=== PATIENT | male | born 1990 | race Caucasian/White ===

== ENCOUNTER 2016-10-15 21:15 | Emergency (ER) | payer BC ==
[2016-10-15] MEDS ORDERED: Tetan/Diph/Pertus SYR(Tdap)* 0.5 ML SYR(BOOSTRIX) use SYR IM ONE (23:24)
[2016-10-16 00:22] VITALS: BP 105/56
--- NOTE | 2016-10-16 01:22 | ED ---
Lisette Mejia SooYoung, scribed for Loy Sweet MD on 10/15/16 at 2325 . 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 Pt was working on his truck and dropped a wrench onto his L forehead. Associated sx: dizziness. No active bleeding. Denies LOC. Denies pain elsewhere. Denies vomiting. Pt has never had stitches before. He's unsure of his last tetanus shot. 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 Mechanism of Injury: Sharp/Blunt Trauma Onset/Duration: Sudden Onset, Lasting Hours, Still Present Timing: Constant Onset Severity: Moderate Current Severity: Moderate Pain Intensity: 6 Pain Scale Used: 0-10 Numeric Associated Signs & Symptoms: Numbness - L forehead near eye - Allergy/Home Medications Allergies/Adverse Reactions: Allergies Allergy/AdvReac Type Severity Reaction Status Date / Time No Known Allergies Allergy Verified 10/18/15 00:37 PMH/Surg Hx/FS Hx/Imm Hx Previously Healthy: Yes Psychiatric History: Denies: Hx Eating Disorder, Hx of Violent Episodes Against Others - Immunization History Date of Tetanus Vaccine: unknown Infectious Disease History: No Infectious Disease History: Denies: Traveled Outside the [place] in Last 30 Days - Family History Known Family History: Positive: Other - neg: Mental Illness - Social History Occupation: Unemployed - OTHER Lives: Alone Alcohol Use: Rare Hx Substance Use: No Substance Use Type: Reports: None Hx Tobacco Use: No Smoking Status (MU): Never Smoked Tobacco Review of Systems Negative: Fever Negative: Other - neg: pain Skin: Other - pos: lac on L-forehead Neurological: Other - pos: dizziness Positive: Numbness - on L forehead by eye All Other Systems Reviewed And Are Negative: Yes Physical Exam - Summary Physical Exam Summary: The patient is well-nourished in no acute distress and in no acute pain. The skin is warm and dry and skin color reflects adequate perfusion. 2cm lac above L eyebrow. HEENT: The head is normocephalic and atraumatic. Numbness to lateral aspect of forehead. 2cm lac above L eyebrow. The pupils are equal and reactive. EOMI. The conjunctivae are clear and without drainage. Nares are patent and without drainage. Mouth reveals moist mucous membranes and the throat is without erythema and exudate. The external ears are intact. The ear canals are patent and without drainage. The tympanic membranes are intact. Neck is supple with full range of motion and non-tender. There are no carotid bruits. There is no neck vein distension. Respiratory: Chest is non-tender. Lungs are clear to auscultation and breath sounds are symmetrical and equal. Cardiovascular: Hear is regular rate and rhythm. There is no murmur or rub auscultated. There is no peripheral edema and pulses are symmetrical and equal. Abdomen: The abdomen is soft and non-tender. There are normal bowel sounds heard in all four quadrants and there is no organomegaly palpated. Musculoskeletal: There is no back pain noted. Extremities are non-tender with full range of motion. There is good capillary refill. There is no peripheral edema or calf tenderness elicited. Neurological: Patient is alert and oriented to person, place and time. The patient has symmetrical motor strength in all four extremities. Cranial nerves are grossly intact. Deep tendon reflexes are symmetrical and equal in all four extremities. Psychiatric: The patient has an appropriate affect and does not exhibit any anxiety or depression. Triage Information Reviewed: Yes Vital Signs On Initial Exam: Initial Vitals Temp Pulse Resp BP Pulse Ox 97.8 F 58 16 119/64 98 10/15/16 21:24 10/15/16 21:24 10/15/16 21:24 10/15/16 21:24 10/15/16 21:24 Vital Signs Reviewed: Yes Procedures - Laceration/Wound Repair 1 Location: face - L forehead Description: Linear Anesthesia: 1.0% - 4ccs, Lido Length, Depth and Shape: 2cm Laceration/Wound Explored: clean Closure: Single Layer Suture Type: Prolene - 6-0 Number of Sutures: 7 Diagnostics - Vital Signs Vital Signs Temp Pulse Resp BP Pulse Ox 10/15/16 21:26 98.3 F 63 14 119/64 97 10/15/16 21:24 97.8 F 58 16 119/64 98 - Laboratory Lab Statement: Any lab studies that have been ordered have been reviewed, and results considered in the medical decision making process. Laceration Repair Course/Dx - Course Course Of Treatment: Pt is a 26 y/o M presenting with facial lac onset approx 1900. Pt was working on his truck and dropped a wrench onto his L forehead. Associated sx: dizziness. No active bleeding. Denies LOC. Denies pain elsewhere. Denies vomiting. Pt has never had stitches before. He's unsure of his last tetanus shot. Pt given tetanus shot in ED. - Differential Dx Differental Diagnoses: Laceration - Clinical Impression Provider Diagnoses: Laceration of forehead without complication Discharge - Discharge Plan Condition: Stable Disposition: HOME Patient Education Materials: Facial Laceration (ED), Care For Your Stitches (ED ) Referrals: Sotero Caldwell MD [Primary Care Provider] - 5 Days Additional Instructions: Have the stitches removed in 5 days by your primary care provider, at Urgent Care or in the ED. Wash with soap and water 2x per day. Apply antibiotic ointment. Please return to the ED if you experience new or worsening symptoms. The documentation as recorded by the Lisette mason SooYoung accurately reflects the service I personally performed and the decisions made by , Loy Sweet MD.
== END 2016-10-16 00:22 | disposition home or self-care (01) ==
LOC: ED 21:15
DX: S01.81XA Laceration without foreign body of other part of head, initial encounter (principal); W22.8XXA Striking against or struck by other objects, initial encounter; Y93.89 Activity, other specified; Y92.89 Other specified places as the place of occurrence of the external cause
CPT/HCPCS: 12011; 90471; 90715; 99282